=== PATIENT | female | born 1950 | race Caucasian/White ===

== ENCOUNTER → 2017-11-26 | Outpatient (CLI) | payer BC | END | disposition home or self-care (01) | LOC: KCIC MAMMO 13:58 | DX: Z12.31 Encounter for screening mammogram for malignant neoplasm of breast (principal) | CPT/HCPCS: 77067 ==

== ENCOUNTER → 2018-02-04 | Outpatient (CLI) | payer BC ==
--- NOTE | 2018-02-04 16:54 | KCIC ---
History: White female. Osteoporosis screening. Postmenopausal. Comparison: April 30, 2015. Findings: Bone Densitometry was performed with dual photon absorption of the lumbar spine and left hip. Lumbar Spine: Bone density is 0.815 g/cm2 for L1-L4. T-Score is -2.1. Z-score is -0.3. Bone mineral density of the lumbar spine demonstrates 5.0% decrease from previous study. Left hip: Bone density is 0.848 g/cm2. T-Score is -0.8. Z-score is 0.5. Bone mineral density of the left hip demonstrates 6.0% decrease from previous study. IMPRESSION: 1. Osteopenia of the lumbar spine. 2. Bone mineral density of left hip appears within normal limits. World Health definition of osteoporosis and osteopenia: Normal = T-Score at or above -1.0; osteopenia = T-score between -1.0 and -2.5; osteoporosis = T-score at or below -2.5 Electronically signed by: Lyndon Callejas MD (02/04/2018 4:50 PM) [id number]
== END | disposition home or self-care (01) ==
LOC: KCIC DEXA 16:13
PROVIDERS: ATTEND Family Medicine
DX: Z13.820 Encounter for screening for osteoporosis (principal); M85.88 Other specified disorders of bone density and structure, other site; M81.0 Age-related osteoporosis without current pathological fracture; Z78.0 Asymptomatic menopausal state
CPT/HCPCS: 77080

== ENCOUNTER → 2018-12-13 | Outpatient (CLI) | payer BC ==
--- NOTE | 2018-12-13 18:06 | KCIC ---
Bilateral digital screening mammograms with 3-D tomosynthesis: Reason for examination: Routine screening. Comparison is made to previous studies dated 11/26/2017 and 04/30/2015. Bilateral mammograms in CC and oblique projections were obtained with 2-D imaging and 3-D tomosynthesis imaging on a Siemens Inspiration unit and reviewed on the workstation. Interpretation was made with the benefit of CAD. The skin and nipples show no abnormalities. No abnormal axillary lymph nodes are seen. The breast parenchyma shows scattered fatty and fibroglandular density. (Breast density: Category B.) There are no dominant masses, suspicious calcifications or architectural distortion. Impression: No evidence of malignancy. Recommend routine screening. BI-RAD Category 1: Negative. "Our facility is accredited by the [employer] Mammography Program." This patient's information has been entered into a reminder system for the patient to be notified with the results of her examination and a target date for the next mammogram. Electronically signed by: Nimisha Nation MD (12/13/2018 6:03 PM) [id number]
== END | disposition home or self-care (01) ==
LOC: KCIC MAMMO 14:27
PROVIDERS: ATTEND Family Medicine
DX: Z12.31 Encounter for screening mammogram for malignant neoplasm of breast (principal)
CPT/HCPCS: 77063; 77067

== ENCOUNTER → 2019-04-04 | Outpatient (CLI) | payer BC ==
--- NOTE | 2019-04-04 15:58 | KCIC ---
EXAM: Lumbar spine, flexion and extension; pelvis and bilateral hips, 5 views. HISTORY: Pain. COMPARISON: None. FINDINGS: Lumbar spine: Frontal, lateral, bilateral oblique and flexion and extension views of the lumbar spine are obtained. There is grade 1 anterolisthesis of L3 on L4. This minimally increases with flexion. The vertebral bodies are normal in height and the disc spaces are preserved. There is facet arthropathy at the lower lumbar levels. Pelvis and bilateral hips: A frontal view the pelvis and frontal and frog-leg views of both hips are obtained. There is no fracture, dislocation or subluxation. There is minimal right hip osteoarthritis. There is a small bump at the right femoral head neck junction, a finding which can be seen with chronic impingement. There are few benign bone islands. IMPRESSION: 1. Grade 1 anterolisthesis of L3 on L4 which slightly increases with flexion. 2. Facet arthropathy at the lower lumbar levels. 3. Minimal right hip osteoarthritis. Electronically signed by: Marlin Hopson MD (04/04/2019 3:55 PM) [id number]
== END | disposition home or self-care (01) ==
LOC: KCIC 11:47
PROVIDERS: ATTEND Family Medicine
DX: M43.16 Spondylolisthesis, lumbar region (principal); M16.11 Unilateral primary osteoarthritis, right hip; G89.29 Other chronic pain
CPT/HCPCS: 72114; 73521